=== PATIENT | female | born 1950 | race Caucasian/White ===

== ENCOUNTER → 2017-10-05 | Outpatient (CLI) | payer MEDICARE, OTHER ==
[~2017-10-05] MED LIST: ASPI-586 PO; ATOR10TA PO; CALC-697 PO; CATHETER FLUSH 10 ML SYR IV PRN; GLUC100016 PO; LEVO100T7 PO; LISI2.5T PO; OMG1KC PO; POTA10CA43 PO; VIT1CAPS9 PO; juice plus PO
[2017-10-05 09:33] VITALS: BP 140/89
--- NOTE | 2017-10-05 22:51 | STRESS TEST ---
DATE OF SERVICE: 10/05/2017 [facility] STRESS TEST REPORT REFERRING PHYSICIAN: Tianna Washington MD. Baseline heart rate is 64. Baseline blood pressure is 140/80. Baseline EKG is sinus rhythm with no ischemic changes. In summary, the patient was injected with 10.57 mCi of technetium-99 Myoview and the resting images were obtained. Then, the patient started exercising with a baseline heart rate, blood pressure and EKG mentioned above. During exercise, the patient was noted to have nondiagnostic EKG changes. There was [address] depression in II and aVF with T-wave inversion, [address] depression in lead III and V4 and V5. During recovery, heart rate and blood pressure returned to baseline. EKG returned to baseline. Her maximum blood pressure was 182/107. The resting and stress images were reviewed and compared in the short axis, horizontal long axis and vertical long axis views. Review of the images showed breast attenuation with mild decreased uptake at the mid to apical anterior wall and anterolateral wall. SSS is 4, SDS 2, TID value 1.05. On the gated images, the left ventricle appeared to be in normal size with normal contractility. Calculated ejection fraction of 73%. CONCLUSION: 1. Fair exercise tolerance, a total of 4 minutes 38 seconds on standard Fredy protocol, total of 6.4 METS achieving 94% of maximum expected heart rate. 2. Hypertensive response to exercise, returned to baseline during recovery. 3. EKG changes noted during stress test suggestive of ischemia. 4. Nondiagnostic SPECT images with breast attenuation and mild decreased uptake at the mid to apical anterior wall and anterolateral wall with mild reversibility. 5. Normal left ventricular size with normal contractility. Calculated ejection fraction of 73%. Job ID: [id number] DocumentID: [id number] Dictated Date: 10/05/2017 16:23:38 Networking Technology Instructor Date: 10/05/2017 22:50:07 Dictated By: LISA ARCHER MD
== END ==
LOC: CARD 07:23
PROVIDERS: ATTEND Internal Medicine Cardiovascular Disease
DX: R07.89 Other chest pain (principal); I10 Essential (primary) hypertension; E78.2 Mixed hyperlipidemia
CPT/HCPCS: 78452; 93017

== ENCOUNTER 2017-10-12 10:45 | Day surgery (SDC) | payer MEDICARE, OTHER ==
[2017-10-12] VITALS (9 sets, daily range): BP systolic 101–141; BP diastolic 50–77
[~2017-10-12] VITALS: Ht 160 cm; Wt 74.4 kg
[2017-10-12] MEDS ORDERED: LIDOCAINE 1% INJ 20 ML 20 ML VIAL ONE (10:46)
[2017-10-12] MEDS ORDERED: NS IV 1000 ML 3,000 ML ONE (10:47)
[2017-10-12] MEDS ORDERED: HEParin 1000 UNIT/ML (10ML VIAL) FOR BOLUS ONE (10:52)
[2017-10-12] MEDS ORDERED: NS IV 1000 ML 1,000 ML IV SCH ×2 (11:00→14:59)
[2017-10-12 11:25] LABS: HEMOGLOBIN 14.9 G/DL (11.5-16.0); MEAN PLATELET VOLUME 10.1 FL (7.4-10.4); RED CELL DISTRIBUTION WIDTH 14.5 % (10.0-14.5); WHITE BLOOD COUNT 7.8 10^3/uL (4.3-11.0)
--- NOTE | 2017-10-12 11:31 | Diagnostic Imaging Report ---
Indication: Pre-heart catheterization. Time of exam: 11:17 AM No prior studies are available for comparison. The heart size is normal. The pulmonary vascularity is unremarkable. The lungs are clear. No infiltrate, effusion or pneumothorax is detected. Impression: No acute cardiopulmonary process is detected. Dictated by: Dictated on workstation # [id number]
[2017-10-12 11:37] LABS: INR 0.9 (0.8-1.4); PROTHROMBIN TIME PATIENT 12.6 SEC (12.2-14.7)
[2017-10-12 11:46] LABS: ALANINE AMINOTRANSFERASE 16 U/L (0-55); ALBUMIN 4.6 GM/DL (3.2-4.5); ALKALINE PHOSPHATASE 75 U/L (40-136); BILIRUBIN,TOTAL 0.7 MG/DL (0.1-1.0); BUN/CREATININE RATIO 15; CALCIUM 9.7 MG/DL (8.5-10.1); CARBON DIOXIDE 28 MMOL/L (21-32); CHLORIDE 107 MMOL/L (98-107); CHOLESTEROL 265 MG/DL (< 200); CREATININE SERUM 0.81 MG/DL (0.60-1.30); GFR ESTIMATED > 60; GLUCOSE 100 MG/DL (70-105); HDL CHOLESTEROL 60 MG/DL (40-60); POTASSIUM 3.8 MMOL/L (3.6-5.0); SODIUM 144 MMOL/L (135-145); TOTAL PROTEIN 8.1 GM/DL (6.4-8.2); TRIGLYCERIDES 112 MG/DL (<150); VLDL CHOLESTEROL 22 MG/DL (5-40)
[2017-10-12] MEDS ORDERED: VIT1CAPS9 PO (11:56)
[2017-10-12] MEDS ORDERED: ASPI-586 PO (11:57)
[2017-10-12] MEDS ORDERED: CALC-697 PO (11:57)
[2017-10-12] MEDS ORDERED: GLUC100016 PO (11:57)
[2017-10-12] MEDS ORDERED: OMG1KC PO (11:59)
[2017-10-12] MEDS ORDERED: juice plus PO (12:01)
[2017-10-12] MEDS ORDERED: LISI2.5T PO (12:01)
[2017-10-12] MEDS ORDERED: LEVO100T7 PO (12:01)
[2017-10-12] MEDS ORDERED: POTA10CA43 PO (12:02)
[2017-10-12] MEDS ORDERED: fentaNYL INJECTION 100 MCG/2 ML AMP ONE (14:00)
[2017-10-12] MEDS ORDERED: MIDAZOLAM 5 MG/5 ML (VERSED) VIAL ONE (14:00)
--- NOTE | 2017-10-12 14:08 | Cardiac Procedure Note-CS/ASA ---
Pre-Procedure Note Pre-Op Procedure Note H&P Reviewed The H&P was reviewed, patient examined and no changes noted. Date H&P Reviewed: October 12, 2017 Time H&P Reviewed: 14:08 Conscious Sedation Pre-Proced Time Reviewed: 14:08 ASA Class: 3 Airway Mallampati Classification: (ambler appropriate class) I. II. III, IV Lungs Heart ASA score ASA 1: a normal healthy patient ASA 2: a patient with a mild systemic disease (mid diabetes, controlled hypertension, obesity x ASA 3: a patient with a severe systemic disease that limits activity (angina , COPD, prior Myocardial infarction) ASA 4: a patient with an incapacitating disease that is a constant threat to life (CHF, renal failure) ASA 5: a moribund patient not expected to survive 24 hrs. (ruptured aneurysm) ASA 6: a declared brain patient whose organs are being harvested. For emergent operations, add the letter E after the classification Grade 3 Sedation Plan: Analgesia, Amnesia, Plan communicated to team members, Discussed options with patient/fam, Discussed risks with patient/fam Note The patient is an appropriate candidate to undergo the planned procedure, sedation, and anesthesia. The patient immediately re-assessed prior to indication. LISA ARCHER MD October 12, 2017 14:08
[2017-10-12] MEDS ORDERED: PATIENT MAY USE OWN MEDS, ALL PO SCH (15:00)
[2017-10-12] MEDS ORDERED: ATOR10TA PO (15:01)
--- NOTE | 2017-10-12 15:07 | Cardiac Cath Report ---
Cardiac Cath Report Physician (s)/Skein Winder (s) Physician LISA ARCHER MD Pre-Procedure Diagnosis Pre-Procedure Diagnosis: Coronary artery disease Post-Procedure Note Procedure Start Date: October 12, 2017 Name of Procedure: Left heart catheterization Left ventriculogram Findings/Procedure Note PROCEDURE NOTE: After explaining the procedure to the patient, all pros and cons were explained , all questions were answered. The patient signed the consent and then she was placed on the cardiac catheterization laboratory. Groin was prepped SL fashion local anesthesia was used. Sheath placed in the right femoral artery. Kalyan right and left catheter were used to access the coronary system, I had difficulties advancing the J-wire across the right iliac artery, long exchange J -wire was used for the procedure. Pigtail was used to access the left ventricular cavity, I did abdominal aortogram in 2 separate injection at the level of the renal artery and at the level of the bifurcation. Left ventriculogram was not done, pressure was measured At the end of the procedure the sheath was removed. Closure device was used FINDINGS: Hemodynamics LV 108/5, end-diastolic pressure 5 Aorta 130/79 mean of 100 ANATOMY: Left Main is free of obstructive disease Left Anterior Descending has mild disease nonobstructive disease Left Circumflex has mild disease nonobstructive disease Right Coronory Artery is codominant artery with mild disease nonobstructive disease LV Gram was not done, pressure was measured Aorta evaluation done with abdominal aortogram at the level of the renal artery and at the bifurcation level, mild atherosclerotic disease in the abdominal aorta, normal renal arteries, normal superior and inferior mesenteric arteries, fibromuscular hyperplasia of the right common iliac artery, otherwise no significant disease down to the trifurcation bilaterally CONCLUSION: 1. Mild coronary artery disease nonobstructive disease 2. Normal abdominal aorta and renal arteries 3. Fibromuscular hyperplasia of the right iliac artery, nonobstructive disease at this time DISCUSSION AND RECOMMENDATION: Medical therapy is recommended, I will add statin to her current medications Anesthesia Type: Conscious Sedation Estimated blood loss (mL): 10 ml Contrast Amount: 72 ml Total Radiation Dose: 219 mGy Post-Procedure Diagnosis Post-operative diagnosis: Coronary artery disease Hypertension Hyperlipidemia Peripheral arterial disease LISA ARCHER MD October 12, 2017 15:07
== END 2017-10-12 19:20 | disposition home or self-care (01) ==
LOC: CATH 10:45
PROVIDERS: ATTEND Internal Medicine Cardiovascular Disease
DX: I25.10 Atherosclerotic heart disease of native coronary artery without angina pectoris (principal); I10 Essential (primary) hypertension; E78.5 Hyperlipidemia, unspecified; I73.9 Peripheral vascular disease, unspecified
CPT/HCPCS: 36415; 71045; 75625; 80053; 80061; 85027; 85610; 85730; 87081; 93458

== ENCOUNTER 2017-11-19 16:58 | Inpatient (IN) | payer MEDICARE, OTHER ==
[~2017-11-19] VITALS: Ht 160 cm; Wt 75.3 kg
[~2017-11-19 16:58] MED LIST changes: -CATHETER FLUSH 10 ML SYR IV PRN
[2017-11-19 19:05] VITALS: BP 131/64
[2017-11-19 19:15] LABS: BASOPHILS % (AUTO) 0 % (0-10); EOSINOPHILS # (AUTO) 0.5 10^3/uL (0.0-0.3); EOSINOPHILS % (AUTO) 5 % (0-10); HEMATOCRIT 42 % (35-52); HEMOGLOBIN 14.4 G/DL (11.5-16.0); LYMPHOCYTES # (AUTO) 2.1 X 10^3 (1.0-4.0); LYMPHOCYTES % (AUTO) 21 % (12-44); MEAN CORPUSCULAR HEMOGLOBIN 31 PG (25-34); MEAN CORPUSCULAR HGB CONC 34 G/DL (32-36); MEAN CORPUSCULAR VOLUME 90 FL (80-99); MEAN PLATELET VOLUME 10.6 FL (7.4-10.4); MONOCYTES # (AUTO) 0.7 X 10^3 (0.0-1.0); MONOCYTES % (AUTO) 7 % (0-12); NEUTROPHILS # (AUTO) 6.5 X 10^3 (1.8-7.8); NEUTROPHILS % (AUTO) 66 % (42-75); PLATELET COUNT 264 10^3/uL (130-400); RED BLOOD COUNT 4.69 10^6/uL (4.35-5.85); RED CELL DISTRIBUTION WIDTH 14.2 % (10.0-14.5); WHITE BLOOD COUNT 9.8 10^3/uL (4.3-11.0)
[2017-11-19 19:31] LABS: ALANINE AMINOTRANSFERASE 29 U/L (0-55); ALBUMIN 4.3 GM/DL (3.2-4.5); ALKALINE PHOSPHATASE 79 U/L (40-136); BUN/CREATININE RATIO 12; CALCIUM 9.5 MG/DL (8.5-10.1); CARBON DIOXIDE 18 MMOL/L (21-32); CHLORIDE 110 MMOL/L (98-107); CREATININE SERUM 0.75 MG/DL (0.60-1.30); GFR ESTIMATED > 60; GLUCOSE 95 MG/DL (70-105); POTASSIUM 4.2 MMOL/L (3.6-5.0); SODIUM 142 MMOL/L (135-145); TOTAL PROTEIN 7.7 GM/DL (6.4-8.2)
[2017-11-19] MEDS: morphine INJ 4 MG/ML 1 ML (VIAL/SYRINGE) IVP PRN (21:37)
[2017-11-19] MEDS: NS IV 1000 ML 1,000 ML IV SCH (21:37)
[2017-11-20 00:22] VITALS: BP 103/51
[2017-11-20 04:36] VITALS: BP 121/64
[2017-11-20 06:03] LABS: BILIRUBIN,URINE NEGATIVE (NEGATIVE); CLARITY,URINE CLEAR; COLOR,URINE YELLOW; GLUCOSE, URINE (UA) NEGATIVE (NEGATIVE); KETONES,URINE NEGATIVE (NEGATIVE); LEUKOCYTE ESTERASE ,URINE 2+ (NEGATIVE); NITRITE,URINE NEGATIVE (NEGATIVE); PH,URINE 5 (5-9); PROTEIN,URINE 1+ (NEGATIVE); UROBILINOGEN,URINE NORMAL (NORMAL)
[2017-11-20 06:10] LABS: BACTERIA,URINE FEW /HPF
[2017-11-20] MEDS: NS IV 1000 ML 1,000 ML IV SCH ×2 (06:57→12:05)
[2017-11-20 08:00] VITALS: BP 144/73
--- NOTE | 2017-11-20 10:13 | Consultation ---
History of Present Illness History of Present Illness Patient Consulted On(sanya/time) 11/20/17 10:08 Date Seen by Provider: Nov 20, 2017 Time Seen by Provider: 10:08 Reason for Visit: RIGHT Valgus Impacted Femoral Neck Fracture History of Present Illness Pt reports no prior history of R hip problems although she has had lumbar issues. She was traveling, and at a motel 250 [place] from here, Tuesday night she tripped and fell onto RIGHT HIP. She had immediate pain but the pain resolved quickly when she was still. She was able to walk. She spent the night at the motel and on Tuesday was able to continue to walk, albeit with a limp and with assistance. She travelled all day and went to the ER in [place] once she returned home to the area. She was transferred here for definitive Orthopaedic care. She has had [address] Melendrez and was told she has arthritis. Allergies and Home Medications Allergies Coded Allergies: latex (Unverified Allergy, Mild, RASH, 10/12/17) Penicillins (Unverified Allergy, Unknown, 10/12/17) Home Medications Aspirin 81 Mg Tablet.dr, 81 MG PO DAILY, (Reported) Atorvastatin Calcium 10 Mg Tablet, 10 MG PO DAILY Prescribed by: LISA ARCHER on 10/12/17 1501 Calcium Carbonate/Vitamin D3 1 Each Tablet, 1 EACH PO BID, (Reported) Glucosamine Sulfate 2Kcl 1,000 Mg Tablet, 1,000 MG PO DAILY, (Reported) Levothyroxine Sodium 100 Mcg Tablet, 100 MCG PO DAILY, (Reported) Lisinopril 2.5 Mg Tablet, 2.5 MG PO DAILY, (Reported) Montgomery 3 Polyunsat Fatty Acids 1,000 Mg Cap, 1,000 MG PO BID, (Reported) Potassium Chloride 10 Meq Capsule.er, 10 MEQ PO DAILY, (Reported) Vit C/Vit E/Lutein/Min/Montgomery-3 1 Each Capsule, 1 EACH PO DAILY, (Reported) [juice plus] , 2 CAP PO DAILY, (Reported) Patient Home Medication List Home Medication List Reviewed: Yes Past Zbbvjkr-Gmdtnu-Dacedc Hx Patient Social History Alcohol Use: Denies Use Recreational Drug Use: No Smoking Status: Never a Smoker Recent Foreign Travel: No Contact w/Someone Who Travel: No Recent Infectious Disease Expo: No Immunizations Up To Date Date of Pneumonia Vaccine: Feb 27, 2017 Seasonal Allergies Seasonal Allergies: Yes Past Medical History Surgeries: Yes (Heart cath back in October 2017) Family Medical History She has had recent Knee scope. She had a cardiac catheterization 10/12/17 without significant findings of disease. Denies SOB, CP, Orthopnea, GAN. Physical Exam-General Problems Physical Exam Vital Signs Vital Signs - First Documented 11/19/17 19:05 Temp 99.1 Pulse 69 Resp 18 B/P (MAP) 131/64 (86) Pulse Ox 97 O2 Delivery Room Air Capillary Refill : General Appearance: WD/WN, no apparent distress, thin, other (Alert, normal cognition, appears capable of complying with post-op restriction of fracture repair.) Eyes: Bilateral Eye Normal Inspection Neck: full range of motion, supple, normal inspection Cardiovascular: normal peripheral pulses, regular rate, rhythm Peripheral Pulses: 1+ Dorsalis Pedis (R) (Posterior Tibial 2+) Extremities: normal inspection, no calf tenderness, normal capillary refill, other (Seen sitting in chair. Unable to flex hip actively, pain with IR/ER) Neurologic/Psychiatric: normal mood/affect, oriented x 3, other (ankle dorsiflexion/plantarflexion intact, LTSI throughout foot) Skin: normal color, other (intact, no rash/abrasion to RIGHT hip) Assessment/Plan Assessment/Plan Admission Diagnosis/Plan 1. Right Hip Valgus impacted femoral neck fracture. 2. DOI Tuesday11/18/17 3. Has been mobile since 4. Outside X-rays from [place] reviewed, no DJD Right hip. 5. Remote h/o reaction to PCN 6. Plan SCD's and Xarelto post-op 7. Comprehensive discussion of R/B/A and alternative surgical management approaches to different types of fracture patterns and risks of nonunion and AVN 8. Rec Parallel Screw Fixation, will be TDWB 6-8 weeks Clinical Quality Measures DVT/VTE Risk/Contraindication: VTE Addressed: Yes Risk Factor Score Per Nursin RFS Level Per Nursing on Admit: 4+=Very High PEER,CELIA Hamlin MD Nov 20, 2017 10:13
--- NOTE | 2017-11-20 10:19 | History & Physical-Hospitalist ---
History of Present Illness HPI/Chief Complaint CC: Right femoral neck fracture acute HPI: This is a 67-year-old white female who was out of town at [place], [place] who tripped on her luggage strap when she turned the corner in her hotel room around her bed and sustained a fall in immediately had right hip pain. She chose to right back to [facility] for 5 hour car ride rather then be detained out of town for presumed surgery. Is at this current time that orthopedic surgeries assessed the patient to be in need of fracture repair and since benefits outweigh medical risks she is been deemed stable to proceed on with surgery. Her primary care provider is Dr. Pulido. Dr. Shafer sees her on a regular basis and was referred to him for chronic dyspnea but recent cardiac catheterization revealed no coronary stenosis. At this current time patient is without pain and less she moves. Source: patient Exam Limitations: no limitations Date Seen 11/20/17 Time Seen by Provider: 10:15 Attending Physician Cory Sadler MD PCP Tianna Pulido MD Referring Physician Date of Admission Nov 19, 2017 at 18:39 Home Medications & Allergies Home Medications Reviewed patient Home Medication Reconciliation performed by pharmacy medication reconciliations biomedical technician and/or nursing. Patients Allergies have been reviewed. 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) Alcohol Use: Denies Use Recreational Drug Use: No Smoking Status: Never a Smoker Physical Abuse Screen: No Sexual Abuse: No Recent Foreign Travel: No Contact w/other who traveled: No Recent Infectious Disease Expo: No Immunizations Up To Date Date of Pneumonia Vaccine: Feb 27, 2017 Seasonal Allergies Seasonal Allergies: Yes Past Medical History Cardiac: High Cholesterol, Hypertension Endocrine: Hypothyroidsim Family History Hypertension Review of Systems Constitutional: see HPI EENTM: no symptoms reported Respiratory: dyspnea on exertion (chronic issue and w/u negative recently) Cardiovascular: no symptoms reported Gastrointestinal: no symptoms reported Genitourinary: no symptoms reported Musculoskeletal: joint pain (right hip) Skin: no symptoms reported Psychiatric/Neurological: No Symptoms Reported All Other Systems Reviewed Negative Unless Noted: Yes Physical Exam Physical Exam Vital Signs Vital Signs - First Documented 11/19/17 19:05 Temp 99.1 Pulse 69 Resp 18 B/P (MAP) 131/64 (86) Pulse Ox 97 O2 Delivery Room Air Capillary Refill : General Appearance: No Apparent Distress, WD/WN, Chronically ill Eyes: Bilateral Eye Normal Inspection, Bilateral Eye PERRL HEENT: PERRL/EOMI, Normal ENT Inspection, Pharynx Normal Neck: Full Range of Motion, Normal Inspection, Non Tender, Supple, Carotid Bruit Respiratory: Chest Non Tender, Lungs Clear, Normal Breath Sounds, No Accessory Muscle Use, No Respiratory Distress Cardiovascular: Regular Rate, Rhythm, No Edema, No Gallop, No JVD, No Murmur, Normal Peripheral Pulses Gastrointestinal: Normal Bowel Sounds, No Organomegaly, No Pulsatile Mass, Non Tender, Soft Back: Normal Inspection, No CVA Tenderness, No Vertebral Tenderness Extremity: Normal Capillary Refill, Normal Inspection, Normal Range of Motion ( except right leg), Non Tender, No Calf Tenderness, No Pedal Edema Neurologic/Psychiatric: Alert, Oriented x3, No Motor/Sensory Deficits, Normal Mood/Affect Skin: Normal Color, Warm/Dry Lymphatic: No Adenopathy Results Results/Procedures Labs Laboratory Tests 11/19/17 19:05 Patient resulted labs reviewed. Assessment/Plan Admission Diagnosis Right femoral neck fracture acute Fall in hotel yesterday HTN HLP Hypothyroidism Admission Status: Inpatient Order (span 2 midnights) Reason for Inpatient Admission: Inpt required for hip fx repair and close monitoring for bleeding Assessment and Plan Proceed on with right femoral neck fracture repair by Dr. Shore since benefits outweigh medical risks Diagnosis/Problems Diagnosis/Problems (1) Fracture of femoral neck, right Status: Acute Assessment & Plan: Proceed on with repair today since benefits outweigh medical risks Qualifiers: Encounter type: initial encounter Fracture type: closed Qualified Codes: S72.001A - Fracture of unspecified part of neck of right femur, initial encounter for closed fracture (2) Fall Status: Acute Qualifiers: Encounter type: initial encounter Qualified Codes: W19.XXXA - Unspecified fall, initial encounter (3) Dyspnea on exertion Status: Chronic Assessment & Plan: Recent cath was normal per Dr Shafer (4) Hypothyroidism Status: Chronic Assessment & Plan: Restart home meds Qualifiers: Hypothyroidism type: acquired Qualified Codes: E03.9 - Hypothyroidism, unspecified (5) Hyperlipidemia Status: Chronic Qualifiers: Hyperlipidemia type: mixed hyperlipidemia Qualified Codes: E78.2 - Mixed hyperlipidemia (6) Hypertension Status: Chronic Qualifiers: Hypertension type: essential hypertension Qualified Codes: I10 - Essential (primary) hypertension Clinical Quality Measures DVT/VTE Risk/Contraindication: Risk Factor Score Per Nursin RFS Level Per Nursing on Admit: 4+=Very High Copy Copies To 1: TIANNA PULIDO MD, MINDI DO Nov 20, 2017 10:18
--- NOTE | 2017-11-20 10:25 | Consultation-Cardiology ---
HPI-Cardiology Cardiology Consultation Date of Consultation 11/20/17 Date of Admission Time Seen by Provider: 10:21 HPI 67 years old lady with history of hypertension, hyperlipidemia, admitted for right hip fracture after sustaining a fall from tripping. No syncope was reported. Has been having mild chest pain on and off. No palpitation. No syncope or near syncopal episodes. She is scheduled for surgery today. I was called for preoperative cardiac evaluation. Home Medications & Allergies Allergies: Coded Allergies: latex (Unverified Allergy, Mild, RASH, 10/12/17) Penicillins (Unverified Allergy, Unknown, 10/12/17) Home Medication List Reviewed: Yes CRV-Vgtptg-Azupqn Hx Patient Social History Marital Status: Employed/Student: retired Alcohol Use: Denies Use Recreational Drug Use: No Smoking Status: Never a Smoker Recent Foreign Travel: No Recent Infectious Disease Expo: No Physical Abuse Screen: No Sexual Abuse: No Immunizations Up To Date Date of Pneumonia Vaccine: Feb 27, 2017 Past Medical History Discussed below Family Medical History Family Medical Hx Noncontributory to her current condition Constitutional: no symptoms reported, see HPI EENTM: see HPI, no symptoms reported Respiratory: see HPI; No cough, No dyspnea on exertion, No hemoptysis, No orthopnea, No phlegm, No short of breath, No stridor, No wheezing, No other Cardiovascular: see HPI, chest pain; No edema, No Hx of Intervention, No palpitations, No syncope, No vascular heart diseas, No other Gastrointestinal: no symptoms reported, see HPI Genitourinary: see HPI Musculoskeletal: see HPI, back pain, joint pain, other (Hip pain) Skin: no symptoms reported, see HPI Psychiatric/Neurological: No Symptoms Reported, See HPI Reviewed Test Results Reviewed Test Results Lab Laboratory Tests Test 11/19/17 19:05 11/20/17 05:30 Range/Units White Blood Count 9.8 4.3-11.0 10^3/uL Red Blood Count 4.69 4.35-5.85 10^6/uL Hemoglobin 14.4 11.5-16.0 G/DL Hematocrit 42 35-52 % Mean Corpuscular Volume 90 80-99 FL Mean Corpuscular Hemoglobin 31 25-34 PG Mean Corpuscular Hemoglobin Concent 34 32-36 G/DL Red Cell Distribution Width 14.2 10.0-14.5 % Platelet Count 264 130-400 10^3/uL Mean Platelet Volume 10.6 H 7.4-10.4 FL Neutrophils (%) (Auto) 66 42-75 % Lymphocytes (%) (Auto) 21 12-44 % Monocytes (%) (Auto) 7 0-12 % Eosinophils (%) (Auto) 5 0-10 % Basophils (%) (Auto) 0 0-10 % Neutrophils # (Auto) 6.5 1.8-7.8 X 10^3 Lymphocytes # (Auto) 2.1 1.0-4.0 X 10^3 Monocytes # (Auto) 0.7 0.0-1.0 X 10^3 Eosinophils # (Auto) 0.5 H 0.0-0.3 10^3/uL Basophils # (Auto) 0.0 0.0-0.1 10^3/uL Sodium Level 142 135-145 MMOL/L Potassium Level 4.2 3.6-5.0 MMOL/L Chloride Level 110 H 98-107 MMOL/L Carbon Dioxide Level 18 L 21-32 MMOL/L Anion Gap 14 5-14 MMOL/L Blood Urea Nitrogen 9 7-18 MG/DL Creatinine 0.75 0.60-1.30 MG/DL Estimat Glomerular Filtration Rate > 60 BUN/Creatinine Ratio 12 Glucose Level 95 70-105 MG/DL Calcium Level 9.5 8.5-10.1 MG/DL Total Bilirubin 1.0 0.1-1.0 MG/DL Aspartate Amino Transf (AST/SGOT) 38 H 5-34 U/L Alanine Aminotransferase (ALT/SGPT) 29 0-55 U/L Alkaline Phosphatase 79 40-136 U/L Total Protein 7.7 6.4-8.2 GM/DL Albumin 4.3 3.2-4.5 GM/DL Urine Color YELLOW Urine Clarity CLEAR Urine pH 5 5-9 Urine Specific [place] 1.030 H 1.016-1.022 Urine Protein 1+ H NEGATIVE Urine Glucose (UA) NEGATIVE NEGATIVE Urine Ketones NEGATIVE NEGATIVE Urine Nitrite NEGATIVE NEGATIVE Urine Bilirubin NEGATIVE NEGATIVE Urine Urobilinogen NORMAL NORMAL MG/DL Urine Leukocyte Esterase 2+ H NEGATIVE Urine RBC (Auto) 3+ H NEGATIVE Urine RBC 2-5 H /HPF Urine WBC 10-25 H /HPF Urine Squamous Epithelial Cells 2-5 /HPF Urine Crystals NONE /LPF Urine Bacteria FEW H /HPF Urine Casts NONE /LPF Urine Mucus MODERATE H /LPF Urine Culture Indicated YES Physical Exam Vital Signs Vital Signs - First Documented 11/19/17 19:05 Temp 99.1 Pulse 69 Resp 18 B/P (MAP) 131/64 (86) Pulse Ox 97 O2 Delivery Room Air Capillary Refill : General Appearance: No Apparent Distress, WD/WN Eyes: Bilateral Eye Normal Inspection, Bilateral Eye PERRL, Bilateral Eye EOMI HEENT: PERRL/EOMI, TMs Normal, Normal ENT Inspection, Pharynx Normal Neck: Full Range of Motion, Normal Inspection, Non Tender, Supple, Carotid Bruit Respiratory: Chest Non Tender, Lungs Clear, Normal Breath Sounds, No Accessory Muscle Use, No Respiratory Distress Cardiovascular: Regular Rate, Rhythm, No Edema, No Gallop, No JVD, No Murmur, Normal Peripheral Pulses Gastrointestinal: Normal Bowel Sounds, No Organomegaly, No Pulsatile Mass, Non Tender, Soft Back: Normal Inspection, No CVA Tenderness, No Vertebral Tenderness Extremity: Normal Capillary Refill, Normal Inspection, Non Tender, No Calf Tenderness, No Pedal Edema, Other (Right hip fracture) Neurologic/Psychiatric: Alert, Oriented x3, No Motor/Sensory Deficits, Normal Mood/Affect Skin: Normal Color, Warm/Dry Lymphatic: No Adenopathy A/P-Cardiology Admission Diagnosis Hip fracture Anterior chest wall pain Coronary artery disease Hypertension Assessment/Plan Right hip fracture, scheduled for surgery today. Coronary artery disease, mild disease per cardiac catheterization on October 12, 2017. Continue to monitor Chest pain, musculoskeletal, unlikely to be cardiac. Hypertension, restart home medication monitor blood pressure Hyperlipidemia, continue to monitor lipids Temo's thyroiditis. Managed by primary care physician History of degenerative joint disease/arthritic pain Preoperative cardiac evaluation, patient is considered at low to intermediate risk for perioperative cardiac vascular complications, decision regarding surgery, risks versus benefit is deferred to the surgeon Clinical Quality Measures DVT/VTE Risk/Contraindication: Risk Factor Score Per Nursin RFS Level Per Nursing on Admit: 4+=Very High LISA ARCHER MD Nov 20, 2017 10:24
[2017-11-20] MEDS ORDERED: ONDANSETRON 4 MG/2 ML (SDV) Z0FRAN IVP PRN ×2 (10:45→14:45)
[2017-11-20] MEDS ORDERED: ACETAMINOPHEN 500 MG TAB (TYLENOL) PO PRN (10:45)
[2017-11-20] MEDS ORDERED: ALPRAZolam 0.25 MG (XANAX) TAB PO PRN (10:45)
[2017-11-20] MEDS ORDERED: MIDAZOLAM 2 MG/2 ML (VERSED) VIAL ONE (11:22)
[2017-11-20] MEDS: lisINopril 5 MG (PRINIVIL) TABLET PO SCH ×2 (11:22→11:23)
[2017-11-20] MEDS ORDERED: fentaNYL INJECTION 100 MCG/2 ML AMP ONE (11:22)
[2017-11-20] MEDS ORDERED: ONDANSETRON 4 MG/2 ML (SDV) Z0FRAN ONE (11:23)
[2017-11-20] MEDS ORDERED: proPOfol 200 MG/20 ML (DIPRIVAN) VIAL IV ONE (11:23)
[2017-11-20] MEDS ORDERED: LIDOCAINE PF 2% 5 ML (XYLOCAINE) VIAL ONE (11:23)
[2017-11-20] MEDS ORDERED: ROCURONIUM 10 MG/ML 5 ML SYRINGE IV ONE (11:23)
[2017-11-20] MEDS: morphine INJ 4 MG/ML 1 ML (VIAL/SYRINGE) IVP PRN (11:47)
[2017-11-20] MEDS ORDERED: ceFAZolin 2 GM IV Premixed 50 ML IV ONE (11:55)
[2017-11-20] MEDS: LACTATED RINGERS 1,000 ML IV PRN ×2 (12:03→13:23)
[2017-11-20] MEDS ORDERED: morphine INJ 10 MG/ML 1ML (SYR OR VIAL) ONE (13:26)
[2017-11-20] MEDS ORDERED: HYDROmorphone 1 MG/ML (DILAUDID) 1 ML SYRINGE ONE (13:27)
[2017-11-20] MEDS ORDERED: MEPERIDINE (DEMEROL) INJ 50 MG/ML ONE (13:27)
[2017-11-20] MEDS ORDERED: SEVOFLURANE (ULTANE) 15 ML INHAL SOLN ONE ×2 (13:45→14:32)
[2017-11-20] MEDS ORDERED: SUCCINYLCHOLINE INJ 100 MG/5 ML SYR ONE (13:46)
[2017-11-20] MEDS ORDERED: BUP/EPI 0.5% 1:200,000 (SENSORCAINE) 30 ML VIAL ONE (13:48)
--- NOTE | 2017-11-20 14:20 | Diagnostic Imaging Report ---
INDICATION: Hip fracture, undergoing fixation. TECHNIQUE: Four intraprocedural images right hip. CORRELATION STUDY: None FINDINGS: Intraoperative imaging demonstrates placement of 4 partially threaded cannulated screws over the proximal femur. FLUOROSCOPY TIME: 45 seconds IMPRESSION: 1. Fluoroscopy utilized for internal fixation of the proximal right femur. Dictated by: Dictated on workstation # [id number]
[2017-11-20] MEDS ORDERED: morphine INJ 10 MG/ML 1ML (SYR OR VIAL) IVP PRN (14:45)
[2017-11-20] MEDS ORDERED: MEPERIDINE (DEMEROL) INJ 50 MG/ML IVP PRN (14:45)
[2017-11-20 15:30] VITALS: BP 111/56
[2017-11-20] MEDS ORDERED: BISACODYL 5 MG (DULCOLAX) TABLET PO PRN (15:30)
[2017-11-20] MEDS ORDERED: MILK OF MAGNESIA 400 MG/5 ML 30 ML UDC PO PRN (15:30)
[2017-11-20] MEDS ORDERED: ZOLPIDEM 5 MG (AMBIEN) TAB PO PRN (15:30)
[2017-11-20] MEDS ORDERED: ACETAMINOPHEN 325 MG TABLET PO PRN (15:30)
[2017-11-20] MEDS ORDERED: DIAZEPAM 5 MG (VALIUM) TABLET PO PRN (15:30)
[2017-11-20] MEDS ORDERED: ONDANSETRON 4 MG/2 ML (SDV) Z0FRAN IV PRN (15:30)
[2017-11-20] MEDS ORDERED: ceFAZolin INJECTION 1 MG in NS (IVPB) 50 ML IV SCH (16:00)
--- NOTE | 2017-11-20 16:01 | Operative Report ---
Operative Report Date of Procedure/Surgery Nov 20, 2017 Surgeon (s) CELIA NEWBERRY MD [employer] Finance Manager (s): none Post-Operative Diagnosis Right Valgus Impacted Femoral Neck Fracture Procedure Performed Percutaneous Parallel Screw Fixation Description of Procedure Anesthesia Type: General (LMA) Estimated blood loss (mL): 25 Specimen(s) collected/removed none Description of the Procedure Comprehensive discussion of R/B/A and surgical decision making was held with patient and . Pt wanted to proceed and provided written informed consent I verified the correct RIGHT side with the patient and signed the site before proceeding to the OR suite. Patient was subsequently taken to the OR, transferred onto the fracture table and underwent general anesthesia. She ws positioned with the RLE in 10 lbs traction and some adduction. Standard sterile prep and draping with the shower curtain was performed. C-arm was used to identify approriate external landmarks and a 2 inch incision was made and cautery performed with a Bovie. The IT band was incised with a Resendiz scissors. Initial low pin placement was flouro guided and a second pin in high position was placed. The high pin was partially overdrilled to approximately 35 mm, after measuring for the depth, with a 5mm cannulated drill. THe high screw was placed with power and finished by hand with excellent purchase. The multi-pin bullet was used to create a alexandra configuration with two additional pins parallel to the low central pin by placing a mid anterior pin and mid posterior pin. These were sequentially measured and drilled and screws placed with flouro guidance. finally the low screw was placed using a similar technique. Final flouro images were obtained. Abundant irrigation was used. The incision was closed with running 2-0 vicryl for the IT band and sub-cu 3-0 monocryl and dermabond for the skin. 15 cc of 0.5% marcaine with epi was injected at the surgical site. Appropriate sterile dressing was applied and the patient was awakened, extubated and sent to ICU for recovery. She tolerated the procedure well, there were no apparent complications Plan: 20lbs TDWB, MANDATORY walker for 6 weeks, 10 days Xarelto, convert to ASA daily afterwards, Ancef 24hr. Findings of the Procedure as above Allergies and Home Medications Allergies Coded Allergies: latex (Unverified Allergy, Mild, RASH, 10/12/17) Penicillins (Unverified Allergy, Unknown, 10/12/17) Home Medications Aspirin 81 Mg Tablet.dr, 81 MG PO DAILY, (Reported) Atorvastatin Calcium 10 Mg Tablet, 10 MG PO DAILY Prescribed by: LISA ARCHER on 10/12/17 1501 Calcium Carbonate/Vitamin D3 1 Each Tablet, 1 EACH PO BID, (Reported) Glucosamine Sulfate 2Kcl 1,000 Mg Tablet, 1,000 MG PO DAILY, (Reported) Levothyroxine Sodium 100 Mcg Tablet, 100 MCG PO DAILY, (Reported) Lisinopril 2.5 Mg Tablet, 2.5 MG PO DAILY, (Reported) [place] 3 Polyunsat Fatty Acids 1,000 Mg Cap, 1,000 MG PO BID, (Reported) Potassium Chloride 10 Meq Capsule.er, 10 MEQ PO DAILY, (Reported) Vit C/Vit E/Lutein/Min/[place]-3 1 Each Capsule, 1 EACH PO DAILY, (Reported) [juice plus] , 2 CAP PO DAILY, (Reported) Patient Home Medication List Home Medication List Reviewed: Yes CELIA NEWBERRY MD Nov 20, 2017 16:01
[2017-11-20] MEDS ORDERED: ceFAZolin 2 GM IV Premixed 50 ML ONE (16:09)
[2017-11-20] MEDS: ceFAZolin INJECTION 1,000 MG in NS (IVPB) 50 ML IV SCH (16:45)
--- NOTE | 2017-11-20 17:47 | Diagnostic Imaging Report ---
INDICATION: Status post right hip fracture, ORIF. EXAMINATION: Right hip, 11/20/2017. FINDINGS: Two views of the right hip demonstrate 4 screws traversing the femoral neck with near anatomic alignment of the femoral head with femoral neck. Overlying subcutaneous air noted consistent with the recent surgery. There is no dislocation. IMPRESSION: 1. Unremarkable expected postoperative changes. Near-anatomic alignment at the fracture site. Dictated by: Dictated on workstation # [id number]
[2017-11-20] MEDS: DOCUSATE SODIUM 100 MG (COLACE) CAP PO SCH (19:18)
[2017-11-20 20:05] VITALS: BP 118/69
[2017-11-20] MEDS ORDERED: DOCUSATE SODIUM 100 MG (COLACE) CAP PO SCH (21:00)
[2017-11-20] MEDS: oxyCODONE/APAP 5/325MG (PERCOCET 5) TABLET PO PRN (22:01)
[2017-11-21 00:38] VITALS: BP 117/59
[2017-11-21] MEDS: ceFAZolin INJECTION 1,000 MG in NS (IVPB) 50 ML IV SCH ×2 (00:48→08:36)
[2017-11-21] MEDS: NS IV 1000 ML 1,000 ML IV SCH (00:48)
[2017-11-21] MEDS: POLYETHYLENE GLYCOL 17 GM (MIRALAX) PACK PO SCH ×3 (01:21→21:40)
[2017-11-21 04:54] VITALS: BP 121/60
[2017-11-21 05:39] LABS: BASOPHILS % (AUTO) 0 % (0-10); EOSINOPHILS % (AUTO) 0 % (0-10); HEMATOCRIT 37 % (35-52); HEMOGLOBIN 12.2 G/DL (11.5-16.0); LYMPHOCYTES # (AUTO) 0.8 X 10^3 (1.0-4.0); LYMPHOCYTES % (AUTO) 8 % (12-44); MEAN CORPUSCULAR HEMOGLOBIN 30 PG (25-34); MEAN CORPUSCULAR HGB CONC 33 G/DL (32-36); MEAN CORPUSCULAR VOLUME 91 FL (80-99); MEAN PLATELET VOLUME 10.2 FL (7.4-10.4); MONOCYTES # (AUTO) 0.6 X 10^3 (0.0-1.0); MONOCYTES % (AUTO) 5 % (0-12); NEUTROPHILS # (AUTO) 9.4 X 10^3 (1.8-7.8); NEUTROPHILS % (AUTO) 87 % (42-75); PLATELET COUNT 223 10^3/uL (130-400); RED BLOOD COUNT 4.02 10^6/uL (4.35-5.85); WHITE BLOOD COUNT 10.8 10^3/uL (4.3-11.0)
[2017-11-21 06:05] LABS: ALANINE AMINOTRANSFERASE 28 U/L (0-55); ALBUMIN 3.2 GM/DL (3.2-4.5); ALKALINE PHOSPHATASE 64 U/L (40-136); BILIRUBIN,TOTAL 0.6 MG/DL (0.1-1.0); BUN/CREATININE RATIO 13; CALCIUM 8.3 MG/DL (8.5-10.1); CARBON DIOXIDE 19 MMOL/L (21-32); CHLORIDE 114 MMOL/L (98-107); CREATININE SERUM 0.67 MG/DL (0.60-1.30); GFR ESTIMATED > 60; GLUCOSE 142 MG/DL (70-105); SODIUM 142 MMOL/L (135-145); TOTAL PROTEIN 5.7 GM/DL (6.4-8.2)
[2017-11-21 08:17] VITALS: BP 110/59
[2017-11-21] MEDS: oxyCODONE/APAP 5/325MG (PERCOCET 5) TABLET PO PRN ×2 (08:34→21:39)
[2017-11-21] MEDS: lisINopril 5 MG (PRINIVIL) TABLET PO SCH (08:36)
[2017-11-21] MEDS: DOCUSATE SODIUM 100 MG (COLACE) CAP PO SCH ×2 (08:36→21:39)
[2017-11-21] MEDS ORDERED: RIVAROXABAN 10 MG TABLET (XARELTO) PO SCH (10:00)
[2017-11-21] MEDS ORDERED: LEVOTHYROXINE 100 MCG (LEVOTHROID) TAB ONE (11:29)
[2017-11-21] MEDS: LEVOTHYROXINE 100 MCG (LEVOTHROID) TAB PO SCH (11:36)
--- NOTE | 2017-11-21 11:42 | Physical Therapy Evaluation ---
PT Evaluation-General Medical Diagnosis Admission Date Nov 19, 2017 at 18:39 Medical Diagnosis: right femoral neck facture Onset Date: Nov 19, 2017 Therapy Diagnosis Therapy Diagnosis: debility Height/Weight Height (Feet): 5 Height (Inches): 3.00 Weight (Pounds): 166 Weight (Ounces): 1.0 Precautions Precautions/Isolations: Standard Precautions Weight Bear Status Right Lower Extremity: Right Touch Toe Bearing (20# ) Left Lower Extremity: Left Full Weight Bearing Referral Physician: Mone Reason for Referral: Evaluation/Treatment Medical History Pertinent Medical History: HTN, Hypothroidism Current History tripped over luggage strap and fell Reviewed History: Yes Social History Home: Single Level Current Living Status: Spouse Entry Into Home: Stairs With Railing PT Steps Into Home: 4 Prior/Core FIM Prior Level of Function Functional [place] Measure 0=Not Assessed/NA 4=Minimal Assistance 1=Total Assistance 5=Supervision or Setup 2=Maximal Assistance 6=Modified [place] 3=Moderate Assistance 7=Complete [place] Bed Mobility: 7 Transfers (B,C,W/C) (FIM): 7 Gait: 7 Locomotion: 7 PT Evaluation-Current Subjective Patient agrees to PT. Pain Numeric Pain Scale: 4 Location: Right Location Body Site: Hip Pain Description: Acute Objective Patient Orientation: Normal For Age Problem Solving: Good ROM/Strength ROM Lower Extremities bilateral LE WNL Strength Lower Extremities 4/5 grossly bilaterally Integumentary/Posture Integumentary refer to nursing notes Bowel Incontinence: No Bladder Incontinence: No Posture WNL Neuromuscular (Tone, Coordination, Reflexes) grossly intact Sensory Vision: Wears Glasses Hearing: Functional Sensation Right Lower Extremit: Intact Sensation Left Lower Extremity: Intact Transfers Functional [place] Measure 0=Not Assessed/NA 4=Minimal Assistance 1=Total Assistance 5=Supervision or Setup 2=Maximal Assistance 6=Modified [place] 3=Moderate Assistance 7=Complete [place] Transfers (B, C, W/C) (FIM): 6 Scootin Rollin Supine to/from Sit: 7 Sit to/from Stand: 6 Gait Mode of Locomotion: Walk Anticipated Mode of Locomotion: Walk Gait (FIM): 6 Distance (FIM): 3=150 ft Distance: 150' Gait Level of Assist: 6 Gait Assistive Device: FWW Comments/Gait Description Patient is able to maintain TTWB right LE with FWW without difficulty/safe and functional gait sequence Balance Sitting Static: Normal Sitting Dynamic: Normal Standing Static: Normal Standing Dynamic: Normal Assessment/Needs 67 y.o. active female, will benefit from short term skilled PT to address functional mobility to ensure safe return to home with spouse and home health intervention. This PT has made patient up ad eryn in room to begin the process of returning to home at a safe modified independent LOF. Rehab Potential: Good PT Short Term Goals Short Term Goals Time Frame: Nov 25, 2017 Transfers (B,C,W/C) (FIM): 6 Gait (FIM): 6 Distance (FIM): 3=150 ft Gait Level of Assist: 6 Gait Assistive Device: FWW Stairs (FIM): 2 # of Steps: 4 Stairs Level of Assist: 5 PT Plan Treatment/Plan Treatment Plan: Continue Plan of Care Treatment Plan: Education, Functional Activity [place], Functional Strength, Group Therapy, Safety, Therapeutic Exercise Treatment Duration: Nov 25, 2017 Frequency: Estimated Hrs Per Day: .5 hour per day Patient and/or Family Agrees t: Yes Safety Risks/Education Patient Education: Gait Training, Safety Issues Teaching Recipient: Patient Teaching Methods: Demonstration, Discussion Response to Teaching: Verbalize Understanding, Return Demonstration Discharge Recommendations Therapy D/C Recommendations: Home w/ Family Support, Physical Therapy Home Care Equpiment Recommendations-D/C: Front Wheeled Walker Time/GCodes Time In: 1025 Time Out: 1045 Total Billed Treatment Time: 20 Total Billed Treatment 1 visit EVModC 20 min GATO AGUIRRE PT Nov 21, 2017 11:42
--- NOTE | 2017-11-21 11:57 | Cardiology Progress Note ---
Subjective Date Seen by Provider: Nov 21, 2017 Time Seen by Provider: 11:55 Subjective/Events-last exam Patient is sitting in a chair, feeling well, recovering well, denied any pain. Review of Systems General: No Chills, No Night Sweats, No Fatigue, No Malaise, No Appetite, No Other HEENT: No Head Aches, No Visual Changes, No Eye Pain, No Ear Pain, No Dysphasia , No Sinus Congestion, No Post Nasal Drip, No Sore Throat, No Other Pulmonary: No Dyspnea, No Cough, No Pleuritic Chest Pain, No Other Cardiovascular: No: Chest Pain, Palpitations, Orthopnea, Paroxysmal Noc. Dyspnea, Edema, Lt Headedness, Other Gastrointestinal: No: Nausea, Vomiting, Abdominal Pain, Diarrhea, Constipation , Melena, Hematochezia, Other Objective-Cardiology Exam Last Set of Vital Signs Vital Signs 11/21/17 11/21/17 04:54 08:17 Temp 97.7 Pulse 61 Resp 16 B/P (MAP) 110/59 (76) Pulse Ox 92 O2 Delivery Room Air O2 Flow Rate 3.50 Capillary Refill : Less Than 3 Seconds I&O Intake and Output 11/21/17 00:00 Intake Total 2250 ml Output Total 1600 ml Balance 650 ml Intake Oral 200 ml IV Total 2050 ml Output Urine Total 1600 ml General: Alert, Oriented X3, Cooperative HEENT: Atraumatic, PERRLA Neck: Supple, No JVD, No Thyromegaly Lungs: Clear to Auscultation, Normal Air Movement Heart: Regular Rate, Normal S1, Normal S2, No Murmurs Abdomen: Normal Bowel Sounds, Soft, No Tenderness, No Hepatosplenomegaly, No Masses Extremities: No Clubbing, No Cyanosis, No Edema, Normal Pulses, No Tenderness/ Swelling Skin: No Rashes, No Breakdown, No Significant Lesion Neuro: Normal Gait, Normal Speech, Strength at 5/5 X4 Ext, Normal Tone, Sensation Intact Psych/Mental Status: Mental Status NL, Mood NL Results Lab Laboratory Tests 11/21/17 05:30 A/P-Cardiology Admission Diagnosis Hip fracture Anterior chest wall pain Coronary artery disease Hypertension Assessment/Plan Right hip fracture, postop day number 1, recovering well. Coronary artery disease, mild disease per cardiac catheterization on October 12, 2017. Continue to monitor Chest pain, musculoskeletal, unlikely to be cardiac. Hypertension, continue home medications and monitor blood pressure Hyperlipidemia, continue to monitor lipids Temo's thyroiditis. Managed by primary care physician History of degenerative joint disease/arthritic pain I will sign off at this time, please reconsult if needed, thank you for allowing me to part stating the management of Mrs. Rivera Clinical Quality Measures DVT/VTE Risk/Contraindication: VTE Addressed: Yes Risk Factor Score Per Nursin RFS Level Per Nursing on Admit: 4+=Very High LISA ARCHER MD Nov 21, 2017 11:57
[2017-11-21 12:00] VITALS: BP 144/79
--- NOTE | 2017-11-21 12:37 | Progress Note-Hospitalist ---
Progress Note Progress Notes/Assess & Plan Date Seen 11/21/17 Time Seen by Provider: 12:35 Assessment & Plan The patient had operative repair of a right femoral neck fracture yesterday. She appears to have done very well. Physical therapy reports her to be high performing with ambulation. To this point she has had one assisted walk. Her pain is controlled. It would appear likely that she will be a candidate for discharge tomorrow. Physical exam: Lungs are clear to auscultation. CV is regular without murmur. Abdomen is soft. Impression: Right femoral neck fracture postoperative day 1. Plan: Continue PT with the possibility of discharge tomorrow. KATIE ROA MD Nov 21, 2017 12:37
--- NOTE | 2017-11-21 13:29 | Anesthesia-General Post-Op ---
General Patient Condition Mental Status/LOC: Same as Preop Cardiovascular: Satisfactory Nausea/Vomiting: Absent Respiratory: Satisfactory Pain: Controlled Complications: Absent Post Op Complications Complications None Follow Up Care/Instructions Patient Instructions None needed. Anesthesia/Patient Condition Patient Condition Patient is doing well, no complaints, stable vital signs, no apparent adverse anesthesia problems. MASHA MURPHY DO Nov 21, 2017 13:29
[2017-11-21] MEDS ORDERED: L.AC1CAP6 PO (13:46)
--- NOTE | 2017-11-21 15:00 | Physical Therapy Daily Note ---
PT Daily Note-Current Subjective Patient is very agreeable to participate with PT. Pain Numeric Pain Scale: 3 Location: Right Location Body Site: Hip Pain Description: Acute Mental Status Patient Orientation: Normal For Age Transfers Functional [place] Measure 0=Not Assessed/NA 4=Minimal Assistance 1=Total Assistance 5=Supervision or Setup 2=Maximal Assistance 6=Modified [place] 3=Moderate Assistance 7=Complete IndependenceIRFPAI Quality Coding Scale 6 Independent with activity with or without an assistive device 5 Patient requires set up or clean up by helper. Patient completes activity by themselves 4 Supervision or touching assist (CGA). [place] provide cues , steadying assist 3 The helper provides less than half the effort to complete the activity 2 The helper provides more than half the effort to complete the activity 1 Dependent. The helper does all the effort to complete an activity 7 Patient refused to complete or attempt activity 9 The patient did not perform the activity before the current illness or injury 88 Not attempted due to Medical conditions or safety concerns Transfers (B, C, W/C) (FIM): 6 Scootin Rollin Supine to/from Sit: 7 Sit to/from Stand: 6 Weight Bearing Right Lower Extremity: Right Touch Toe Bearing (20# ) Left Lower Extremity: Left Full Weight Bearing Gait Training Gait (FIM): 6 Distance (FIM): 3=150 ft Distance: 175' Gait Level of Assist: 6 Gait Assistive Device: FWW compliant with TDWB right LE 20# Exercises Supine Ex: Ankle pumps, Quad Set, Heel Slides, Straight leg raise Supine Reps: 20 (AROM) Seated Therapy Exercises: Long arc quads Seated Reps: 25 Assessment Patient tolerated treatment well and will dismiss to home tomorrow with home health intervention. PT Short Term Goals Short Term Goals Time Frame: Nov 25, 2017 Transfers (B,C,W/C) (FIM): 6 Gait (FIM): 6 Distance (FIM): 3=150 ft Gait Level of Assist: 6 Gait Assistive Device: FWW Stairs (FIM): 2 # of Steps: 4 Stairs Level of Assist: 5 PT Plan Treatment/Plan Treatment Plan: Continue Plan of Care Treatment Plan: Education, Functional Activity [place], Functional Strength, Group Therapy, Safety, Therapeutic Exercise Treatment Duration: Nov 25, 2017 Frequency: Estimated Hrs Per Day: .5 hour per day Patient and/or Family Agrees t: Yes Time/GCodes Time In: 1408 Time Out: 1425 Total Billed Treatment Time: 17 Total Billed Treatment 1 visit FA 17 min GATO AGUIRRE PT Nov 21, 2017 15:00
--- NOTE | 2017-11-21 15:09 | Occupational Therapy Eval ---
OT Evaluation-General/PLF Medical Diagnosis Admission Date Nov 19, 2017 at 18:39 Medical Diagnosis: right femoral neck facture Onset Date: Nov 19, 2017 Therapy Diagnosis Therapy Diagnosis: decr self care Height/Weight Height (Feet): 5 Height (Inches): 3.00 Weight (Pounds): 166 Weight (Ounces): 1.0 Precautions Precautions/Isolations: Standard Precautions Safety Interventions: None Weight Bear Status Weight Bearing Restriction: Touch Toe Bearing (20#) Location Restriction: R LE WBS (Ord/Comment): Walker for 6 weeks Referral Physician: Peer Referral Reason: Evaluation/Treatment Medical History Pertinent Medical History: Arthritis, HTN, Hypothroidism Additional Medical History Dyspnea. Hyperlipidemia. Current History Fell, with R fem neck fx. ORIF 11-20-17. Social History Home: Single Level Current Living Status: Spouse Entry Into Home: Stairs With Railing Steps Into Home: 4 ADL-Prior Level of Function ADL PLOF Comments Pt reported that she was previously able to manage all of her basic self care needs at home, as well as home care tasks. 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 She still drives DME/Equipment: Tub/Shower OT Current Status Subjective Pt seen in room, up in recliner, agreeable to OT. No pain mentioned Appearance Alert, cooperative Current Glasses/Contacts: Yes Upper Extremity ROM Grossly WFL bilat Upper Extremity Strength grossly WFL bilat ADL-Treatment ADL-Current Pt is mod I with ambulation with FWW and up ad eryn in room. Pt said that she showered herself this morning, shower bench, grab bars, hand held shower. Pt education and demonstration with soft sock aid, dressing stick ,reachers, return demonstration. Discussed mod technique for donning TEDs and using walker for getting off toilet. Pt walked to bathroom and was able to get on/off tall toilet with grab bar on L side but was uncomfortable and not sure that she was putting appropriate weight on R LE. BSc placed over toilet and she was able to easily get up and down off/on toilet, safely. Stood safely at sink to wash and dry hands. Equipment recommended includes transfer tub bench, BSC for over toilet, hip kit and sock aid. Shared equipment information with social media editor. pt left up in bed, all needs met. Functional [place] Measure 0=Not Assessed/NA 4=Minimal Assistance 1=Total Assistance 5=Supervision or Setup 2=Maximal Assistance 6=Modified [place] 3=Moderate Assistance 7=Complete IndependenceIRFPAI Quality Coding Scale 6 Independent with activity with or without an assistive device 5 Patient requires set up or clean up by helper. Patient completes activity by themselves 4 Supervision or touching assist (CGA). [place] provide cues , steadying assist 3 The helper provides less than half the effort to complete the activity 2 The helper provides more than half the effort to complete the activity 1 Dependent. The helper does all the effort to complete an activity 7 Patient refused to complete or attempt activity 9 The patient did not perform the activity before the current illness or injury 88 Not attempted due to Medical conditions or safety concerns Toileting (FIM): 6 Toilet/Commode Transfer (FIM): 6 Education OT Patient Education: Modified ADL techniques, Progress toward Goal/Update tx plan, Purpose of tx/functional activities, Rehab process, Safety issues, Transfer techniques, Use of adapted equipment Teaching Recipient: Patient Teaching Methods: Demonstration, Discussion Response to Teaching: Verbalize Understanding, Return Demonstration OT Short Term Goals Short Term Goals Transfers (B,C,W/C) (FIM): 6 1=Demonstrate adherence to instructed precautions during ADL tasks. 2=Patient will verbalize/demonstrate understanding of assistive devices/ modifications for ADL. 3=Patient will improve strength/tolerance for activity to enable patient to perform ADL's. OT Nursing Home Goals Nursing Home Goals Time Frame: Nov 23, 2017 Grooming(FIM): 6 Upper Body Dressing(FIM): 6 Lower Body Dressing(FIM): 6 Toileting(FIM): 6 Toilet/Commode Transfer(FIM): 6 Additional Goals: 1-Demonstrate ADL Tasks 1=Demonstrate adherence to instructed precautions during ADL tasks. 2=Patient will verbalize/demonstrate understanding of assistive devices/ modifications for ADL. 3=Patient will improve strength/tolerance for activity to enable patient to perform ADL's. OT Education/Plan Problem List/Assessment Assessment: Impaired Self-Care Skills Pt would benefit from skilled OT to increase her independence in basic self care to allow her to safely return to her home. Discharge Recommendations Plan/Recommendations: Continue POC Therapy D/C Recommendations: Home w/ Family Support Treatment Plan/Plan of Care Treatment,Training & Education: Yes Patient would benefit from OT for education, treatment and training to promote independence in ADL's, mobility, safety and/or upper extremity function for ADL' s. Plan of Care: ADL Retraining Treatment Duration: Nov 23, 2017 Frequency: 3 times per week Estimated Hrs Per Day: .25 hour per day Agreement: Yes Rehab Potential: Good Time/GCodes Start Time: 14:25 Stop Time: 14:57 Total Time Billed (hr/min): 32 Billed Treatment Time visit, evaluation low intensity 15 minutes, ADL 17 minutes YOLETTE MAYS OT Nov 21, 2017 15:08
[2017-11-21 15:30] VITALS: BP 136/70
--- NOTE | 2017-11-21 18:34 | Progress Note-Standard ---
Standard Progress Note Progress Notes/Assess & Plan Date Seen by Provider: Nov 21, 2017 Time Seen by Provider: 18:24 Progress/Assessment & Plan Ekaterina is post op day 1 s/p ORIF right hip fracture doing well with very little pain. Ambulated 150 feet with PT and has been ambulating independently throughout the day. Exam: Right hip: CCDI, NVI, Normal ROM with minimal pain A: S/p ORIF right hip fracture P: Dismiss tomorrow with follow up in [address] Dos Santos. d/c xarelto, start 81 mg asa with naprosyn 450mg po q bid. BHARGAVI ONEILL Nov 21, 2017 18:34
[2017-11-21] MEDS ORDERED: NAPR-1070 PO (18:36)
[2017-11-21 20:20] VITALS: BP 132/67
[2017-11-22 00:25] VITALS: BP 131/66
[2017-11-22 04:19] VITALS: BP 133/63
[2017-11-22] MEDS: LEVOTHYROXINE 100 MCG (LEVOTHROID) TAB PO SCH (05:37)
[2017-11-22 07:00] VITALS: BP 135/70
[2017-11-22] MEDS: lisINopril 5 MG (PRINIVIL) TABLET PO SCH (08:20)
[2017-11-22] MEDS: POLYETHYLENE GLYCOL 17 GM (MIRALAX) PACK PO SCH (08:20)
[2017-11-22] MEDS: oxyCODONE/APAP 5/325MG (PERCOCET 5) TABLET PO PRN (08:20)
[2017-11-22] MEDS: DOCUSATE SODIUM 100 MG (COLACE) CAP PO SCH (08:21)
[2017-11-22] MEDS ORDERED: LEVOTHYROXINE 100 MCG (LEVOTHROID) TAB PO SCH (09:00)
[2017-11-22] MEDS ORDERED: POLY17PO23 PO (09:19)
[2017-11-22] MEDS ORDERED: OXYC-471 PO (09:19)
[2017-11-22] MEDS ORDERED: TRAM50TA2 PO (09:19)
[2017-11-22] MEDS ORDERED: Zolpidem Tartrate PO (09:19)
--- NOTE | 2017-11-22 09:21 | D/C HH Face to Face Order ---
D/C Face to Face Orders Instructions for Patient Patient Instructions/FollowUp: Dr Washington in 1 week Physician to follow Patient: Dr Tianna Washington Discharge Diet for Home: No Restrictions Patient Problems: Right femoral neck fracture Debility Patient Data-Allergies,Ht & Wt Patient Allergies: Coded Allergies: latex (Unverified Allergy, Mild, RASH, 10/12/17) Penicillins (Unverified Allergy, Unknown, 10/12/17) Height (Feet): 5 Height (Inches): 3.00 Weight (Pounds): 166 Weight (Ounces): 1.0 Home Health Need/Face to Face Date of Face to Face: Nov 22, 2017 Clinical Findings: Generalized weakness and fatigue, Pain with ambulation, Unsteady gait I have seen Pt [id number]: Yes Discharged To: Home Diagnosis/Conditions: Right femoral neck fracture Debility Patient is Homebound due to: Pain w/ambulation Homebound Status Due to the above stated illness, injury or surgical procedure (medical condition or diagnosis) and associated clinical findings, the patient is homebound because of his/her inability to leave home except with aid of a supportive device and/or person AND leaving the home requires a considerable and taxing effort or is medically contraindicated. Pt req the following assistanc: Walker Home Health Nursing Orders Home Health Services Order: Crisis Manager-Evaluate & Treat, Physical Therapy-Evaluate & Treat Home Health Infusion Therapy Line Start Date: Nov 20, 2017 Line Start Time: 1230 Line Type: Saline Lock Site Location: Hand Certify Stmt I certify that this patient is under my care and that I, a nurse practitioner or a physician; a blood donor unit assistant working with me, had a face to face encounter that - meets the physician face to face encounter requirements with this patient as dated. LAUREEN ZENG DO Nov 22, 2017 09:21
--- NOTE | 2017-11-22 09:22 | Discharge Summary-Hospitalist ---
Diagnosis/Chief Complaint Date of Admission Nov 19, 2017 at 18:39 Date of Discharge Discharge Date: Nov 22, 2017 Admission Diagnosis Right femoral neck fracture acute Fall in hotel yesterday HTN HLP Hypothyroidism Discharge Diagnosis (1) Fracture of femoral neck, right Status: Acute Assessment & Plan: Proceed on with repair today since benefits outweigh medical risks (2) Fall Status: Acute (3) Dyspnea on exertion Status: Chronic Assessment & Plan: Recent cath was normal per Dr Shafer (4) Hypothyroidism Status: Chronic Assessment & Plan: Restart home meds (5) Hyperlipidemia Status: Chronic (6) Hypertension Status: Chronic Discharge Summary Discharge Physical Exam Allergies: Coded Allergies: latex (Unverified Allergy, Mild, RASH, 10/12/17) Penicillins (Unverified Allergy, Unknown, 10/12/17) Vitals & I&Os Vital Signs Date Time Temp Pulse Resp B/P (MAP) Pulse Ox O2 Delivery O2 Flow Rate FiO2 11/22/17 07:53 Room Air 11/22/17 04:19 98.0 69 17 133/63 (86) 91 11/21/17 18:16 3.50 General Appearance: Alert, Oriented X3, Cooperative HEENT: Atraumatic, PERRLA Respiratory: Clear to Auscultation, Normal Air Movement Neuro: Normal Speech, Strength at 5/5 X4 Ext Psych/Mental Status: Mental Status NL, Mood NL Hospital Course Hospital course: patient had an uneventful hospital course. Pt was admitted for right femoral neck fracture after transferred from [facility] [place] and underwent an uncomplicated repair by Dr Shore. Lab levels were monitored and remained stable. Vitals remained stable through the entire hospital course. MiraLAX was given for postop constipation and she will continue that as an outpatient. Home health was ordered for physical therapy and occupational therapy and her primary care provider Dr. Tianna Pulido will monitor closely and see her in one week. All pain medication prescriptions were written and patient was deemed stable for discharge. Labs (last 24 hrs) Microbiology 11/19/17 MRSA Screen - Final, Complete MRSA not isolated 11/20/17 Urine Culture - Final, Complete NO GROWTH Patient resulted labs reviewed. Discussion & Recommendations Discharge Planning: <30 minutes discharge planning Discharge Home Medications: Active Scripts Active Polyethylene Glycol 3350 17 Gm Powd.pack 34 Gm PO BID [Zolpidem Tartrate] 5 MG Tab 5 Mg PO HS PRN Tramadol HCl 50 Mg Tablet 50 Mg PO Q4H PRN Oxycodone-Acetaminophen 5-325 (Oxycodone HCl/Acetaminophen) 1 Each Tablet 1-2 Tab PO Q4H PRN Reported Probiotic (L.acidoph & Paracasei,B.lactis) 1 Each Capsule 1 Each PO DAILY Potassium Chloride 10 Meq Capsule.er 20 Meq PO DAILY take 2 (10 meq) tablets once daily Lisinopril 2.5 Mg Tablet 2.5 Mg PO DAILY Levothyroxine Sodium 100 Mcg Tablet 100 Mcg PO DAILY [juice plus] 2 Cap PO DAILY Fish Oil 1,000 mg Capsule ([place] 3 Polyunsat Fatty Acids) 1,000 Mg Cap 1,000 Mg PO BID Aspir 81 (Aspirin) 81 Mg Tablet.dr 81 Mg PO DAILY Calcium 1,000 + D3 Caplet (Calcium Carbonate/Vitamin D3) 1 Each Tablet 1 Each PO BID Glucosamine (Glucosamine Sulfate 2Kcl) 1,000 Mg Tablet 1,000 Mg PO DAILY Ocuvite Softgel (Vit C/Vit E/[place]in/Min/[place]-3) 1 Each Capsule 1 Each PO DAILY Instructions to patient/family Please see electronic discharge instructions given to patient. Clinical Quality Measures DVT/VTE Risk/Contraindication: VTE Addressed: Yes Risk Factor Score Per Nursin RFS Level Per Nursing on Admit: 4+=Very High Copy Copies To 1: TIANNA PULIDO MD Problem Qualifiers (1) Fracture of femoral neck, right: Encounter type: initial encounter Fracture type: closed Qualified Codes: S72.001A - Fracture of unspecified part of neck of right femur, initial encounter for closed fracture (2) Fall: Encounter type: initial encounter Qualified Codes: W19.XXXA - Unspecified fall, initial encounter (3) Hypothyroidism: Hypothyroidism type: acquired Qualified Codes: E03.9 - Hypothyroidism, unspecified (4) Hyperlipidemia: Hyperlipidemia type: mixed hyperlipidemia Qualified Codes: E78.2 - Mixed hyperlipidemia (5) Hypertension: Hypertension type: essential hypertension Qualified Codes: I10 - Essential ( primary) hypertension LAUREEN ZENG DO Nov 22, 2017 09:22
[2017-11-22] MEDS ORDERED: LACTULOSE SYRUP 10GM/15ML (ENULOSE) 30ML UDC PO NR (09:30)
[2017-11-22] MEDS ORDERED: SENNOSIDES 8.6 MG (SENOKOT) TAB PO NR (09:30)
--- NOTE | 2017-11-22 11:11 | Physical Therapy Daily Note ---
PT Daily Note-Current Subjective Patient reports more right thigh musculature pain on this date. Pain Numeric Pain Scale: 3 Location: Right Location Body Site: Thigh Pain Description: Ache, Acute Mental Status Patient Orientation: Normal For Age Transfers Functional [place]land Measure 0=Not Assessed/NA 4=Minimal Assistance 1=Total Assistance 5=Supervision or Setup 2=Maximal Assistance 6=Modified Bland 3=Moderate Assistance 7=Complete IndependenceIRFPAI Quality Coding Scale 6 Independent with activity with or without an assistive device 5 Patient requires set up or clean up by helper. Patient completes activity by themselves 4 Supervision or touching assist (CGA). [place] provide cues , steadying assist 3 The helper provides less than half the effort to complete the activity 2 The helper provides more than half the effort to complete the activity 1 Dependent. The helper does all the effort to complete an activity 7 Patient refused to complete or attempt activity 9 The patient did not perform the activity before the current illness or injury 88 Not attempted due to Medical conditions or safety concerns Transfers (B, C, W/C) (FIM): 6 Scootin Rollin Supine to/from Sit: 6 Sit to/from Stand: 6 Weight Bearing Right Lower Extremity: Right Touch Toe Bearing (20# ) Left Lower Extremity: Left Full Weight Bearing Gait Training Gait (FIM): 6 Distance (FIM): 3=150 ft Distance: 250' x 2 Gait Level of Assist: 6 Gait Assistive Device: FWW TTWB (20#) right LE with compliance/step to gait sequence Stair Training Stair Training: Handrails/: 1 handrail, uses walker Stairs (FIM): 2 #of Steps: 4 Stairs: Pattern: Step to Level of Assist: 4 able to comply with weight bear status Exercises Supine Ex: Ankle pumps, Quad Set, Heel Slides Supine Reps: 10 Seated Therapy Exercises: Ankle pumps, Long arc quads, Hip flexion Seated Reps: 20 Assessment Patient tolerated treatment well and has attained all functional goals. Education and instruction on exercise program with patient demonstrating good technique with all. Patient will dismiss to home on this date with home health intervention. PT Short Term Goals Short Term Goals Time Frame: Nov 25, 2017 Transfers (B,C,W/C) (FIM): 6 Gait (FIM): 6 Distance (FIM): 3=150 ft Gait Level of Assist: 6 Gait Assistive Device: FWW Stairs (FIM): 2 # of Steps: 4 Stairs Level of Assist: 5 PT Plan Treatment/Plan Treatment Plan: Discontinue PT, goals met Treatment Plan: Education, Functional Activity [place], Functional Strength, Group Therapy, Safety, Therapeutic Exercise Treatment Duration: Nov 25, 2017 Frequency: Estimated Hrs Per Day: .5 hour per day Patient and/or Family Agrees t: Yes Time/GCodes Time In: 1036 Time Out: 1100 Total Billed Treatment Time: 24 Total Billed Treatment 1 visit EX 9 min FA 15 min GATO AGUIRRE PT Nov 22, 2017 11:11
[2017-11-22 12:07] VITALS: BP 124/68
--- NOTE | 2017-11-22 14:49 | Occ Therapy Progress Note ---
Therapy Progress Note 1035 Pt reported that she has coordinated ADL equipment for home with social work and has not self care questions or concerns. Goals met to patient satisfaction. DC OT visit YOLETTE MAYS OT Nov 22, 2017 14:49
[2017-11-22 15:49] VITALS: BP 124/68
== END 2017-11-22 13:59 | disposition home health service (06) | DRG 482 ==
LOC: 4TH 18:39
PROVIDERS: ADMIT Internal Medicine; ATTEND Internal Medicine
PROC: 0QS634Z Reposition Right Upper Femur with Internal Fixation Device, Percutaneous Approach (ICD-10-PCS; principal; 2017-11-20 12:01)
DX: S72.001A Fracture of unspecified part of neck of right femur, initial encounter for closed fracture (principal); I10 Essential (primary) hypertension; E78.2 Mixed hyperlipidemia; J30.2 Other seasonal allergic rhinitis; I25.10 Atherosclerotic heart disease of native coronary artery without angina pectoris; R07.89 Other chest pain; E06.3 Autoimmune thyroiditis; M19.91 Primary osteoarthritis, unspecified site; W18.09XA Striking against other object with subsequent fall, initial encounter; Y92.29 Other specified public building as the place of occurrence of the external cause
CPT/HCPCS: 36415; 73502; 80053; 81000; 85025; 87081; 87088; 93005; 94664

== ENCOUNTER 2019-10-25 11:35 | Outpatient (RCR) | payer MEDICARE, OTHER ==
[~2019-10-25 11:35] MED LIST changes: +L.AC1CAP6 PO; +NAPR-1070 PO; +OCUVITE SOFTGE1 EACH PO; +OXYC-471 PO; +POLY17PO31 PO; +TRM50T PO; -VIT1CAPS9 PO; +Zolpidem Tartrate PO
== END 2020-01-23 | disposition home or self-care (01) ==
LOC: CARD 11:35
PROVIDERS: ATTEND Physician Assistant
DX: I49.1 Atrial premature depolarization (principal); I10 Essential (primary) hypertension; E06.3 Autoimmune thyroiditis; E78.2 Mixed hyperlipidemia
CPT/HCPCS: 93225; 93226

== ENCOUNTER → 2020-06-02 | Outpatient (CLI) | payer MEDICARE, OTHER | LOC: LABNPT 07:08 | PROVIDERS: ATTEND Orthopaedic Surgery | DX: Z01.812 Encounter for preprocedural laboratory examination (principal); Z20.822 Contact with and (suspected) exposure to COVID-19 | CPT/HCPCS: 87635 ==

== ENCOUNTER → 2020-08-09 | Outpatient (CLI) | payer OTHER ==
[~2020-08-09] MED LIST changes: -OXYC-471 PO; +OXYC1TAB11 PO; -POLY17PO31 PO; +POLY17PO54 PO
== END ==
LOC: GIR 16:17
PROVIDERS: ATTEND Family Medicine
DX: Z01.89 Encounter for other specified special examinations (principal)
CPT/HCPCS: 84132

== ENCOUNTER → 2022-06-24 | Outpatient (CLI) | payer MEDICARE, OTHER ==
[~2022-06-24] MED LIST changes: -LISI2.5T PO; +LISI2.5T13 PO; -POTA10CA43 PO; +POTA10CA44 PO
== END | disposition still patient (30) ==
LOC: CARD 12:25
PROVIDERS: ATTEND Physician Assistant
DX: I08.1 Rheumatic disorders of both mitral and tricuspid valves (principal); I10 Essential (primary) hypertension
CPT/HCPCS: 93306

== ENCOUNTER → 2022-07-26 | Outpatient (CLI) | payer MEDICARE, OTHER ==
[~2022-07-26] VITALS: Ht 162 cm; Wt 75.0 kg
[~2022-07-26] MED LIST changes: +CATHETER FLUSH 10 ML SYR IVP PRN
[2022-07-26 09:35] VITALS: BP 150/80
--- NOTE | 2022-07-26 11:25 | Cardiology Stress Test Report ---
Stress Test Report Date of Procedure/Referring: Date of Procedure: Jul 26, 2022 PCP Balwinder Pulido MD Admitting Physician Admitting Physician: Attending Physician: Liat Patterson Indications: HTN Baseline Heart Rate: 69 Baseline Blood Pressure: Blood Pressure Systolic: 150 Blood Pressure Diastolic: 80 Vital Signs Date Time Temp Pulse Resp B/P (MAP) Pulse Ox O2 Delivery O2 Flow Rate FiO2 07/26/22 09:35 69 150/80 (103) Baseline Vital Signs Vital Signs Date Time Temp Pulse Resp B/P (MAP) Pulse Ox O2 Delivery O2 Flow Rate FiO2 07/26/22 09:35 69 150/80 (103) Baseline EKG: Baseline EKG: NSR Summary: After explaining the procedure and details to the patient, she signed the consent and was brought to the stress nuclear laboratory. Patient exercised on standard Fredy protocol, EKG, heart rate and blood pressure were monitored continuously, resting and stress doses of radio tracer were injected, imaging was acquired and reviewed in the short axis, horizontal long axis and vertical long axis views Patient was able to exercise for a total of 4 minutes on Fredy protocol, METs 5.8 Maximum heart rate 138 Maximum blood pressure 185/92 Stress EKG, Minimal nondiagnostic changes Recovery EKG, Return to baseline TID: 1.11 SSS: 9 SDS: 9 EF: 72 Conclusion: Fair exercise tolerance for 4 minutes on standard Fredy protocol, 5.8 METS achieving 94% of maximum expected heart rate Appropriate heart rate response to exercise with hypertensive response to exercise peak blood pressure 195/92 return to baseline during recovery Nondiagnostic EKG changes with exercise return to baseline during recovery Reversible ischemia involving the mid to apical anterior wall, anterolateral wall and anterior septum Normal left ventricular size, ejection fraction 72% Copy Copies To 1: BALWINDER PULIDO MD, BASHAR J MD Jul 26, 2022 11:25
== END ==
LOC: CARD 07:41
PROVIDERS: ATTEND Physician Assistant
DX: I10 Essential (primary) hypertension (principal)
CPT/HCPCS: 78452; 93017; A9502

== ENCOUNTER 2022-08-11 10:00 | Day surgery (SDC) | payer MEDICARE, OTHER ==
[~2022-08-11] VITALS: Ht 161 cm; Wt 76.7 kg
[2022-08-11] VITALS (11 sets, daily range): BP systolic 104–131; BP diastolic 56–77
--- NOTE | 2022-08-11 08:20 | Diagnostic Imaging Report ---
Indication: Cardiac catheter COMPARISON: 10/12/2017 FINDINGS: Lungs clear. No failure, effusion or pneumothorax. Impression: No acute appearing abnormality. Dictated by: Dictated on workstation # [id number]
[2022-08-11 08:47] LABS: HEMATOCRIT 45 % (35-52); HEMOGLOBIN 15.3 g/dL (11.5-16.0); MEAN CORPUSCULAR HEMOGLOBIN 31 pg (25-34); MEAN CORPUSCULAR HGB CONC 34 g/dL (32-36); MEAN CORPUSCULAR VOLUME 92 fL (80-99); MEAN PLATELET VOLUME 10.6 fL (9.0-12.2); PLATELET COUNT 246 10^3/uL (130-400); WHITE BLOOD COUNT 5.4 10^3/uL (4.3-11.0)
[2022-08-11 09:02] LABS: INR 0.9 (0.8-1.4); PROTHROMBIN TIME PATIENT 12.8 SEC (12.2-14.7)
--- NOTE | 2022-08-11 09:02 | Cardiac Procedure Note-CS/ASA ---
Pre-Procedure Note Pre-Op Procedure Note Date of Available H&P: Jul 26, 2022 Date H&P Reviewed: Aug 11, 2022 Time H&P Reviewed: 09:02 History & Physical: H&P Reviewed, Patient Examed, No changes noted Pre-Operative Diagnosis: Coronary artery disease Moderate Sedation PreProcedure Time 09:02 ASA Score 3 Airway Lungs Heart ASA score ASA 1: a normal healthy patient ASA 2: a patient with a mild systemic disease (mid diabetes, controlled hypertension, obesity ASA 3: a patient with a severe systemic disease that limits activity (angina, COPD, prior Myocardial infarction) ASA 4: a patient with an incapacitating disease that is a constant threat to life (CHF, renal failure) ASA 5: a moribund patient not expected to survive 24 hrs. (ruptured aneurysm) ASA 6: a declared brain- patient whose organs are being harvested. For emergent operations, add the letter E after the classification Mallampati Classification Grade 3 Sedation Plan Analgesia, Amnesia, Plan communicated to team members, Discussed options with patient/fam, Discussed risks with patient/fam The patient is an appropriate candidate to undergo the planned procedure, sedation, and anesthesia. The patient immediately re-assessed prior to indication. LISA ARCHER MD Aug 11, 2022 09:02
[2022-08-11 09:15] LABS: ALBUMIN 4.3 GM/DL (3.2-4.5); BILIRUBIN,TOTAL 0.8 MG/DL (0.1-1.0); CALCIUM 9.8 MG/DL (8.5-10.1); CREATININE SERUM 0.84 MG/DL (0.60-1.30); POTASSIUM 3.6 MMOL/L (3.6-5.0); TOTAL PROTEIN 7.4 GM/DL (6.4-8.2)
[~2022-08-11 10:00] MED LIST changes: +CALC-794 PO; +CARB15DR58 OP; -CATHETER FLUSH 10 ML SYR IVP PRN; +GUAI600T43 PO; +HEParin (CATH LAB) 2,000 ML IV ONE; +HEParin 1000 UNIT/ML (10ML VIAL) FOR BOLUS ONE; +KRIL500C PO; +LEVO112C4 PO; +LIDOCAINE 1% INJ 20 ML VIAL ONE; +LISI10TA25 PO; +MIDAZOLAM 5 MG/5 ML (VERSED) VIAL ONE; +MULT-1136 PO; +MV-M1CAP24 PO; +NITRO DRIP 25000 MCG/D5W 0 ML IV ONE; +NS IV 1000 ML 1,000 ML IV ONE; +NS IV 1000 ML 1,000 ML ONE; +OMEG1CAP58 PO; +POTA-177 PO; +VERAPAMIL 5 MG/2 ML (CALAN) VIAL IV ONE; +diphenhydrAMINE 50 MG/ML INJ (BENADRYL) ONE; +fentaNYL INJ 100 MCG/2 ML AMP ONE; +methylPREDNISolone 125 MG (Solu-MEDROL) VIAL ONE
[2022-08-11] MEDS ORDERED: ROSU5TAB PO (10:06)
--- NOTE | 2022-08-11 10:07 | Discharge Inst-Post CATH ---
Discharge Inst-CATH/EP Problems Reviewed?: Yes Post Cardiac Cath/EP D/C Inst Follow Up/Plan Appointment with Dr. Shafer's office in 2 to 4 weeks <b>CARDIAC CATH/EP PROCEDURE DISCHARGE INSTRUCTIONS</b> ACTIVITY * Go Home directly and rest. * Limit activity of the leg (or wrist if it was used) for 7 days including aer obics, swimming, jogging, bicycling, etc. * Restrict stair-climbing for 7 days if possible, if not, climb up with your non-cath leg, then bring together on the same step. * Avoid lifting, pushing, pulling or excessive movement of the affected extremi ty for 7 days. * Customary sexual activity may be resumed after 2 days-use caution not to use a position that strains or causes pain to the affected extremity. * No driving for 24 hours. * NO SMOKING. * Avoid straining for bowel movements for 7 days. * Gentle walking on level ground is allowed. * Returning to work will depend on the type of procedure and the results. Your doctor will discuss this with you. CALL YOUR DOCTOR FOR ANY OF THE FOLLOWING: *If bleeding from the puncture site occurs- Apply gentle pressure to site with clean cloth and call your doctor or EMS. * If a knot or lump forms under the skin, increases in size, or causes pain. * If bruising appears to be worsening or moving further down your leg instead of disappearing. * Temperature above 101 F. CARE OF YOUR GROIN INCISION; * Bruising or purple discoloration of the skin near the puncture site is common. * You may shower only, no bathtub bathing for 5 days. Be careful to avoid slipping as your leg may feel stiff. * If a closure device was used on your femoral artery, please see the attached guide regarding care of the device and your leg. * Leave dressing on FOR 24 hours. CARE OF YOUR WRIST INCISION; * Bruising or purple discoloration of the skin near the puncture site is common. * You may shower. * DO NOT submerge wrist. * Leave dressing on FOR 24 hours. LISA SHAFER MD Aug 11, 2022 10:07
--- NOTE | 2022-08-11 10:12 | Cardiac Cath Report ---
Cardiac Cath Report Physician (s)/Metallography Teacher (s) Physician LISA ARCHER MD Pre-Procedure Diagnosis Pre-Procedure Diagnosis: Coronary artery disease Post-Procedure Note Procedure Start Date: Aug 11, 2022 Procedure Start Time: 10:07 Name of Procedure: Left heart [id number] Abdominal [id number] Findings/Procedure Note PROCEDURE NOTE: 72-year-old lady with history of hypertension, hyperlipidemia, had an abnormal stress test, scheduled for cardiac catheterization possible PTCA. After explaining the procedure to the patient, all pros and cons were explained, all questions were answered. The patient signed the consent and then she was placed in the cardiac catheterization laboratory. Groin was prepped in SL fashion local anesthesia was used. Attempt to advance the wire in the radial artery has failed after multiple attempt with change to the femoral access, sheath placed in the right femoral artery, I was unable to advance J-wire through the iliac artery, I used a Storq wire and advanced Kalyan right catheter engage the right coronary system, then advanced the Kalyan right to the left ventricular cavity, pressure was measured no left ventriculogram was done, pullback LV to aorta was done. Exchanged the catheter over a long Storq wire and advanced Kalyan left catheter, engage the left system and angiogram was done then exchanged the catheter to a pigtail catheter and placed it in the abdominal aorta just above the renal artery and abdominal aortogram was done then pulled the Pigtail catheter down to the bifurcation and did another 10 mL of contrast angiogram to evaluate the bifurcation of the iliac artery. At the end of the procedure the sheath was removed. 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 Small vessel disease nonobstructive disease Left Circumflex is dominant artery with no obstructive disease Right Coronary Artery is moderate in size with no obstructive disease LV Gram was not done, pressure was measured Aorta evaluation done with abdominal aortogram, the abdominal aorta is normal in size. There is no dissection or aneurysm. Renal arteries are slightly tortuous bilaterally with no obstructive disease, SMA and AHMET are tortuous with no obstructive disease, right common iliac artery has some tortuosity with no obst ructive disease, right femoral artery is normal. 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 and slow flow in the distal LAD nonobstructive disease Dominant circumflex artery with no significant obstructive disease Normal left ventricular end-diastolic pressure Slightly tortuous renal arteries and iliac artery with no obstructive disease DISCUSSION AND RECOMMENDATION: Continue to maximize medical therapy, patient was intolerant to atorvastatin in the past, I will try low-dose rosuvastatin and evaluate tolerance and response Anesthesia Type: Conscious Sedation Estimated blood loss (mL): 15 ml Contrast Amount: 55 ml Total Radiation Dose: 330 mGy Post-Procedure Diagnosis Post-operative diagnosis: Coronary artery disease Hypertension Hyperlipidemia LISA ARCHER MD Aug 11, 2022 10:12
[2022-08-11] MEDS ORDERED: PATIENT MAY USE OWN MEDS, ALL PO SCH (10:15)
[2022-08-11] MEDS ORDERED: NS IV 1000 ML 1,000 ML IV SCH (10:15)
== END 2022-08-11 14:30 | disposition home or self-care (01) ==
LOC: CATH 10:00 → SDC 10:23 → CATH 14:30
PROVIDERS: ATTEND Internal Medicine Cardiovascular Disease
DX: I25.10 Atherosclerotic heart disease of native coronary artery without angina pectoris (principal); I10 Essential (primary) hypertension; E78.2 Mixed hyperlipidemia; R00.2 Palpitations; E06.3 Autoimmune thyroiditis; R06.83 Snoring; E89.0 Postprocedural hypothyroidism; I65.23 Occlusion and stenosis of bilateral carotid arteries; Z79.890 Hormone replacement therapy; Z79.899 Other long term (current) drug therapy; Z28.310 Unvaccinated for COVID-19
CPT/HCPCS: 71045; 75625; 80053; 80061; 85027; 85610; 85730; 87081; 93005; 93458; C1760; C1769; C1894; 36415

== ENCOUNTER → 2022-10-21 | Outpatient (CLI) | payer MEDICARE, OTHER ==
[~2022-10-21] MED LIST changes: +BARIUM for suspension 96% w/w (Vanilla Silq Medium Density) PO ONE; +BARIUM for suspension 98% w/w (Vanilla Silq High Density) PO ONE; -HEParin (CATH LAB) 2,000 ML IV ONE; -HEParin 1000 UNIT/ML (10ML VIAL) FOR BOLUS ONE; -LIDOCAINE 1% INJ 20 ML VIAL ONE; -MIDAZOLAM 5 MG/5 ML (VERSED) VIAL ONE; -NITRO DRIP 25000 MCG/D5W 0 ML IV ONE; -NS IV 1000 ML 1,000 ML IV ONE; -NS IV 1000 ML 1,000 ML ONE; +ROSU5TAB PO; -VERAPAMIL 5 MG/2 ML (CALAN) VIAL IV ONE; -diphenhydrAMINE 50 MG/ML INJ (BENADRYL) ONE; -fentaNYL INJ 100 MCG/2 ML AMP ONE; -methylPREDNISolone 125 MG (Solu-MEDROL) VIAL ONE
--- NOTE | 2022-10-21 15:00 | Diagnostic Imaging Report ---
INDICATION: Pills getting stuck in the throat and difficulty swallowing. Patient ingested effervescent crystals as well as thin and thick barium and imaging of the esophagus was performed in multiple obliquities. 40 seconds of fluoroscopic time was utilized. Preliminary radiograph of the chest is unremarkable. Esophagus has a smooth contour. No mass or stricture is identified. No hiatal hernia or gastroesophageal reflux was demonstrated. IMPRESSION: Unremarkable esophagram. Dictated by: Dictated on workstation # [id number]
== END ==
LOC: RAD 10:12
PROVIDERS: ATTEND Surgery
DX: R13.10 Dysphagia, unspecified (principal)
CPT/HCPCS: 74220